=== PATIENT | male | born 1985 | race Caucasian/White ===

== ENCOUNTER 2017-01-11 08:42 | Day surgery (SDC) | payer OTHER ==
[2017-01-05 09:23] VITALS: BMI 27.2
[2017-01-11] MEDS ORDERED: Sodium Chloride 0.9% 1,000 ML IV SCH (10:15)
[2017-01-11] MEDS ORDERED: Propofol 10 mg/ml Inj (20 ML) ONE (10:26)
[2017-01-11] MEDS ORDERED: Midazolam 2 MG/2 ML VIAL ONE (10:26)
[2017-01-11 12:24] VITALS: O2SAT 98
[2017-01-11 14:07] VITALS: BP 112/69; PULSE 53; RESP 18; TEMP 97.5
== END 2017-01-11 13:30 | disposition home or self-care (01) ==
LOC: ENDO 08:42
PROVIDERS: ATTEND Internal Medicine
DX: R19.7 Diarrhea, unspecified (principal); K64.8 Other hemorrhoids; R19.8 Other specified symptoms and signs involving the digestive system and abdomen; R14.0 Abdominal distension (gaseous); R10.84 Generalized abdominal pain; Z80.0 Family history of malignant neoplasm of digestive organs; Z87.891 Personal history of nicotine dependence
CPT/HCPCS: 45380; 88305; J2001; J2250; J2704; J3010; J7040